=== PATIENT | female | born 1965 | race Caucasian/White ===

== ENCOUNTER 2018-01-16 20:40 | Observation (INO) | payer OTHER ==
[~2018-01-16] VITALS: Ht 182.9 cm; Wt 150.6 kg
[~2018-01-16 20:40] MED LIST: ACET120S; CEPH500 PO; CYCL10 PO; Cleocin HCl300 MG PO; ERYSTE250 PO; HYDACE5 PO; IBUP600 PO; LISI20 PO; LISI5 PO; LOVA20 PO; METF500 PO; METO10 PO; NAPR500 PO; OMEP20ER PO; OXYACE5T PO; OXYC1TAB11 PO; OXYC5 PO; PROM25 PO; Percocet 5-3251 EACH PO; RXHYDACE PO; SULTRIDS PO; Senexon8.6 MG; Senna-Docusate1 EACH PO; Senna8.6 MG PO; TRAM50 PO; ZESTORETIC 20-121 EA; Zofran Odt4 MG SL
[2018-01-16 21:20] LABS: Calcium, Ionized (POC) 1.08 mmol/L (1.10-1.46); Chloride (POC) 104 mmol/L (98-108); Creatinine (POC) 0.9 mg/dL (0.6-1.0); Glucose (ISTAT POC) 111 mg/dL (70-99); Hemoglobin (POC) 13.6 g/dL (12.0-16.0); Potassium (POC) 3.7 mmol/L (3.5-5.5); Sodium (POC) 140 mmol/L (135-148); Total CO2 (POC) 22 mmol/L (21-32)
[2018-01-16 21:21] LABS: BASOPHILS ABSOLUTE AUTO 0.07 K/mm3 (0.00-0.23); BASOPHILS PERCENT AUTO 1 % (0-2); EOSINOPHILS ABSOLUTE AUTO 0.27 K/mm3 (0.00-0.68); EOSINOPHILS PERCENT AUTO 3 % (0-6); Hematocrit 43.2 % (33.0-51.0); Hemoglobin 14.2 g/dL (11.5-16.0); IMMATURE GRAN ABSOLUTE AUTO 0.02 K/mm3 (0.00-0.10); IMMATURE GRAN PERCENT AUTO 0 % (0-1); LYMPHOCYTES ABSOLUTE AUTO 4.05 K/mm3 (0.84-5.20); LYMPHOCYTES PERCENT AUTO 44 % (21-46); MONOCYTES ABSOLUTE AUTO 0.66 K/mm3 (0.16-1.47); MONOCYTES PERCENT AUTO 7 % (4-13); Mean Corpuscular HGB Conc 32.9 g/dL (31.5-36.5); Mean Corpuscular Volume 91 fL (80-100); NEUTROPHILS ABSOLUTE AUTO 4.09 K/mm3 (1.96-9.15); NEUTROPHILS PERCENT AUTO 45 % (41-73); RDW Coefficient Variation 13.5 % (11.7-14.2); RDW Standard Deviation 46.2 fL (35.1-46.3); Red Blood Cell Count 4.74 M/mm3 (3.80-5.20); White Blood Cell Count 9.16 K/mm3 (4.00-11.30)
[2018-01-16 21:22] LABS: Mean Platelet Volume 10.4 fL (9.1-12.4); Platelet Count 150 K/mm3 (150-400)
[2018-01-16 21:34] LABS: International Normalized Ratio 0.96; Prothrombin Time Results 9.9 Sec (9.7-11.5)
[2018-01-16 21:38] LABS: Troponin I <0.015 ng/mL (0.000-0.040)
[2018-01-16 21:50] LABS: Alanine Aminotransfer (ALT/SGP 21 U/L (12-78); Albumin, Blood 3.6 g/dL (3.4-5.0); Albumin/Globulin Ratio 0.8 (0.8-1.8); Alk Phos 54 U/L (50-136); Anion Gap 9 mmol/L (6-16); Aspartate Aminotrans (AST/SGOT 14 U/L (12-37); Bilirubin, Total 0.2 mg/dL (0.1-1.0); Blood Urea Nitrogen 24 mg/dL (8-24); Bun/Creatinine Ratio 27.8 (12.0-20.0); CO2, Blood 25 mmol/L (21-32); Calcium, Blood 9.1 mg/dL (8.5-10.1); Chloride, Blood 105 mmol/L (98-108); Creatinine, Blood 0.86 mg/dL (0.40-1.00); Globulin, Blood 4.3 g/dL (2.2-4.0); Glomerular Filtration Rate >60 (60-); Glucose, Blood 105 mg/dL (70-99); Potassium, Blood 3.9 mmol/L (3.5-5.5); Sodium, Blood 139 mmol/L (136-145); Total Protein, Blood 7.9 g/dL (6.4-8.2)
[2018-01-17 03:31] LABS: BASOPHILS ABSOLUTE AUTO 0.05 K/mm3 (0.00-0.23); BASOPHILS PERCENT AUTO 1 % (0-2); EOSINOPHILS ABSOLUTE AUTO 0.26 K/mm3 (0.00-0.68); EOSINOPHILS PERCENT AUTO 4 % (0-6); Hematocrit 37.9 % (33.0-51.0); Hemoglobin 12.1 g/dL (11.5-16.0); IMMATURE GRAN ABSOLUTE AUTO 0.02 K/mm3 (0.00-0.10); IMMATURE GRAN PERCENT AUTO 0 % (0-1); LYMPHOCYTES ABSOLUTE AUTO 3.35 K/mm3 (0.84-5.20); LYMPHOCYTES PERCENT AUTO 46 % (21-46); MONOCYTES ABSOLUTE AUTO 0.52 K/mm3 (0.16-1.47); MONOCYTES PERCENT AUTO 7 % (4-13); Mean Corpuscular HGB 29.9 pg (26.0-34.0); Mean Corpuscular HGB Conc 31.9 g/dL (31.5-36.5); Mean Platelet Volume 10.2 fL (9.1-12.4); NEUTROPHILS ABSOLUTE AUTO 3.16 K/mm3 (1.96-9.15); NEUTROPHILS PERCENT AUTO 43 % (41-73); Platelet Count 159 K/mm3 (150-400); RDW Coefficient Variation 13.7 % (11.7-14.2); RDW Standard Deviation 47.1 fL (35.1-46.3); Red Blood Cell Count 4.05 M/mm3 (3.80-5.20); White Blood Cell Count 7.36 K/mm3 (4.00-11.30)
[2018-01-17 03:34] LABS: Mean Corpuscular Volume 94 fL (80-100)
[2018-01-17 03:46] LABS: Anion Gap 7 mmol/L (6-16); Blood Urea Nitrogen 23 mg/dL (8-24); Bun/Creatinine Ratio 25.4 (12.0-20.0); CO2, Blood 25 mmol/L (21-32); Chloride, Blood 109 mmol/L (98-108); Glomerular Filtration Rate >60 (60-); Glucose, Blood 123 mg/dL (70-99); Potassium, Blood 3.9 mmol/L (3.5-5.5); Sodium, Blood 141 mmol/L (136-145)
[2018-01-20 05:08] LABS: Anion Gap 5 mmol/L (6-16); Blood Urea Nitrogen 15 mg/dL (8-24); Bun/Creatinine Ratio 16.9 (12.0-20.0); CO2, Blood 29 mmol/L (21-32); Calcium, Blood 8.3 mg/dL (8.5-10.1); Chloride, Blood 106 mmol/L (98-108); Creatinine, Blood 0.89 mg/dL (0.40-1.00); Glomerular Filtration Rate >60 (60-); Glucose, Blood 97 mg/dL (70-99); Potassium, Blood 4.4 mmol/L (3.5-5.5); Sodium, Blood 140 mmol/L (136-145)
[2018-01-20] MEDS ORDERED: Aspir-Trin325 MG PO (09:28)
[2018-01-20] MEDS ORDERED: METO25 PO (09:29)
[2018-01-20] MEDS ORDERED: LISI20 PO (09:30)
== END 2018-01-20 09:53 | disposition home or self-care (01) ==
LOC: ER 20:40 → MEDS 23:33 → PCU 01-19 17:18
PROVIDERS: Emergency Medicine; Hospitalist; Nurse Practitioner Acute Care
DX: R07.89 Other chest pain (principal); I11.9 Hypertensive heart disease without heart failure; I43 Cardiomyopathy in diseases classified elsewhere; E11.9 Type 2 diabetes mellitus without complications; E66.01 Morbid (severe) obesity due to excess calories; F17.210 Nicotine dependence, cigarettes, uncomplicated; R10.9 Unspecified abdominal pain; G89.29 Other chronic pain; Z88.6 Allergy status to analgesic agent; Z68.42 Body mass index [BMI] 45.0-49.9, adult; Z79.01 Long term (current) use of anticoagulants; Z86.718 Personal history of other venous thrombosis and embolism; Z88.5 Allergy status to narcotic agent; Z88.8 Allergy status to other drugs, medicaments and biological substances; Z79.899 Other long term (current) drug therapy; Z86.2 Personal history of diseases of the blood and blood-forming organs and certain disorders involving the immune mechanism
CPT/HCPCS: 36415; 71260; 78452; 80047; 80048; 80053; 82947; 83880; 84484; 85014; 85025; 85610; 90686; 93005; 93010; 93017; 93306; 93454; 93458; 96360; 96361; 96372; 96374; 96375; 99152; 99285-25; A9500; C1769; C1894; G0378; J0706; J1170; J1644; J1650; J1885; J2250; J2405; J2785; J3010; J3490; J7030; Q9967

== ENCOUNTER 2018-02-23 12:32 | Observation (INO) | payer OTHER ==
[~2018-02-23] VITALS: Ht 182.9 cm; Wt 151.6 kg
[~2018-02-23 12:32] MED LIST changes: +Aspir-Trin325 MG PO; -METF500 PO; +METF500C PO; +METO25 PO; +Prinivil10 MG PO
[2018-02-23 13:26] LABS: BASOPHILS ABSOLUTE AUTO 0.05 K/mm3 (0.00-0.23); BASOPHILS PERCENT AUTO 1 % (0-2); EOSINOPHILS ABSOLUTE AUTO 0.22 K/mm3 (0.00-0.68); EOSINOPHILS PERCENT AUTO 3 % (0-6); Hemoglobin 13.3 g/dL (11.5-16.0); IMMATURE GRAN ABSOLUTE AUTO 0.02 K/mm3 (0.00-0.10); IMMATURE GRAN PERCENT AUTO 0 % (0-1); LYMPHOCYTES PERCENT AUTO 44 % (21-46); MONOCYTES ABSOLUTE AUTO 0.56 K/mm3 (0.16-1.47); MONOCYTES PERCENT AUTO 8 % (4-13); Mean Corpuscular HGB 29.9 pg (26.0-34.0); Mean Corpuscular HGB Conc 33.3 g/dL (31.5-36.5); Mean Corpuscular Volume 90 fL (80-100); Mean Platelet Volume 10.3 fL (9.1-12.4); NEUTROPHILS PERCENT AUTO 44 % (41-73); Platelet Count 169 K/mm3 (150-400); RDW Coefficient Variation 13.3 % (11.7-14.2); RDW Standard Deviation 44.2 fL (35.1-46.3); Red Blood Cell Count 4.45 M/mm3 (3.80-5.20); White Blood Cell Count 6.85 K/mm3 (4.00-11.30)
[2018-02-23 13:44] LABS: International Normalized Ratio 1.48; Prothrombin Time Results 14.9 Sec (9.7-11.5)
[2018-02-23 13:49] LABS: Alanine Aminotransfer (ALT/SGP 21 U/L (12-78); Albumin, Blood 3.7 g/dL (3.4-5.0); Albumin/Globulin Ratio 0.9 (0.8-1.8); Alk Phos 50 U/L (50-136); Anion Gap 10 mmol/L (6-16); Aspartate Aminotrans (AST/SGOT 16 U/L (12-37); Bilirubin, Total 0.2 mg/dL (0.1-1.0); Blood Urea Nitrogen 15 mg/dL (8-24); Bun/Creatinine Ratio 19.8 (12.0-20.0); CO2, Blood 23 mmol/L (21-32); Calcium, Blood 9.1 mg/dL (8.5-10.1); Chloride, Blood 106 mmol/L (98-108); Creatinine, Blood 0.76 mg/dL (0.40-1.00); Glomerular Filtration Rate >60 (60-); Glucose, Blood 94 mg/dL (70-99); Potassium, Blood 3.9 mmol/L (3.5-5.5); Sodium, Blood 139 mmol/L (136-145); Total Protein, Blood 7.7 g/dL (6.4-8.2); Troponin I <0.015 ng/mL (0.000-0.040)
[2018-02-23] MEDS ORDERED: Nicoderm Cq1 EAC1 TD (16:16)
[2018-02-23] MEDS ORDERED: WARF10 PO (16:17)
[2018-02-23] MEDS ORDERED: WARF2.5 PO (16:17)
[2018-02-24 05:03] LABS: BASOPHILS ABSOLUTE AUTO 0.04 K/mm3 (0.00-0.23); BASOPHILS PERCENT AUTO 1 % (0-2); EOSINOPHILS ABSOLUTE AUTO 0.19 K/mm3 (0.00-0.68); EOSINOPHILS PERCENT AUTO 4 % (0-6); Hematocrit 37.5 % (33.0-51.0); Hemoglobin 12.1 g/dL (11.5-16.0); IMMATURE GRAN PERCENT AUTO 0 % (0-1); LYMPHOCYTES PERCENT AUTO 44 % (21-46); MONOCYTES ABSOLUTE AUTO 0.44 K/mm3 (0.16-1.47); MONOCYTES PERCENT AUTO 8 % (4-13); Mean Corpuscular HGB 29.7 pg (26.0-34.0); Mean Corpuscular HGB Conc 32.3 g/dL (31.5-36.5); Mean Corpuscular Volume 92 fL (80-100); Mean Platelet Volume 9.9 fL (9.1-12.4); NEUTROPHILS ABSOLUTE AUTO 2.33 K/mm3 (1.96-9.15); NEUTROPHILS PERCENT AUTO 43 % (41-73); Platelet Count 149 K/mm3 (150-400); RDW Coefficient Variation 13.6 % (11.7-14.2); RDW Standard Deviation 46.7 fL (35.1-46.3); Red Blood Cell Count 4.08 M/mm3 (3.80-5.20)
[2018-02-24 05:15] LABS: International Normalized Ratio 1.69; Prothrombin Time Results 16.9 Sec (9.7-11.5)
[2018-02-24 05:24] LABS: Anion Gap 9 mmol/L (6-16); Blood Urea Nitrogen 14 mg/dL (8-24); Bun/Creatinine Ratio 17.7 (12.0-20.0); CO2, Blood 26 mmol/L (21-32); Calcium, Blood 8.1 mg/dL (8.5-10.1); Chloride, Blood 106 mmol/L (98-108); Creatinine, Blood 0.79 mg/dL (0.40-1.00); Glomerular Filtration Rate >60 (60-); Glucose, Blood 89 mg/dL (70-99); Sodium, Blood 141 mmol/L (136-145)
[2018-02-24] MEDS ORDERED: ACET325 PO (14:35)
== END 2018-02-24 16:00 | disposition home or self-care (01) ==
LOC: ER 12:32 → MEDS 17:10
PROVIDERS: Emergency Medicine; Internal Medicine
DX: R07.89 Other chest pain (principal); D68.51 Activated protein C resistance; D68.2 Hereditary deficiency of other clotting factors; I10 Essential (primary) hypertension; E11.65 Type 2 diabetes mellitus with hyperglycemia; R63.4 Abnormal weight loss; Z88.5 Allergy status to narcotic agent; Z88.8 Allergy status to other drugs, medicaments and biological substances; Z79.82 Long term (current) use of aspirin; Z79.899 Other long term (current) drug therapy; Z87.891 Personal history of nicotine dependence; Z79.01 Long term (current) use of anticoagulants
CPT/HCPCS: 36415; 71046; 71260; 80048; 80053; 84443; 84484; 85025; 85610; 85651; 93005; 93010; 94640; 94760; 96361; 96372; 96374; 96375; 96376; 99285-25; G0378; J0360; J1170; J1650; J1885; J2060; J2270; J2930; J7030; Q9967

== ENCOUNTER 2018-08-02 18:20 | Emergency (ER) | payer OTHER ==
[~2018-08-02] VITALS: Ht 182.9 cm; Wt 147.4 kg
[~2018-08-02 18:20] MED LIST changes: +ACET325 PO; +Nicoderm Cq1 EAC1 TD; +WARF10 PO; +WARF2.5 PO
[2018-08-02 19:16] LABS: Source, Urine Clean Catch
[2018-08-02 19:19] LABS: Bilirubin, Urine Neg (Neg); Blood, Urine 5+ (Neg); Glucose Qualitative, Urine Neg (Neg); Ketones, Urine 1+ (Neg); Leukocyte Esterase, Urine 2+ (Neg); Nitrite, Urine Pos (Neg); Protein, Urine 3+ (Neg); Urobilinogen, Urine 1+ (Normal)
[2018-08-02 19:42] LABS: Appearance, Urine Bloody (Clear); Color, Urine Red (P-Yellow)
[2018-08-02 19:45] LABS: Red Blood Cells, Urine TNTC /hpf (0-2)
[2018-08-02 19:46] LABS: Bacteria Rare /hpf; Squamous Epithelial Cells Few /hpf (Few)
[2018-08-02 19:56] LABS: BASOPHILS ABSOLUTE AUTO 0.07 K/mm3 (0.00-0.23); BASOPHILS PERCENT AUTO 1 % (0-2); EOSINOPHILS ABSOLUTE AUTO 0.26 K/mm3 (0.00-0.68); EOSINOPHILS PERCENT AUTO 3 % (0-6); Hematocrit 40.3 % (33.0-51.0); IMMATURE GRAN ABSOLUTE AUTO 0.01 K/mm3 (0.00-0.10); IMMATURE GRAN PERCENT AUTO 0 % (0-1); LYMPHOCYTES ABSOLUTE AUTO 3.03 K/mm3 (0.84-5.20); LYMPHOCYTES PERCENT AUTO 39 % (21-46); MONOCYTES ABSOLUTE AUTO 0.58 K/mm3 (0.16-1.47); MONOCYTES PERCENT AUTO 8 % (4-13); Mean Corpuscular HGB 29.7 pg (26.0-34.0); Mean Corpuscular HGB Conc 32.3 g/dL (31.5-36.5); Mean Corpuscular Volume 92 fL (80-100); Mean Platelet Volume 10.1 fL (9.1-12.4); NEUTROPHILS ABSOLUTE AUTO 3.74 K/mm3 (1.96-9.15); NEUTROPHILS PERCENT AUTO 49 % (41-73); Platelet Count 170 K/mm3 (150-400); RDW Coefficient Variation 13.9 % (11.7-14.2); RDW Standard Deviation 47.2 fL (35.1-46.3); Red Blood Cell Count 4.38 M/mm3 (3.80-5.20); White Blood Cell Count 7.69 K/mm3 (4.00-11.30)
[2018-08-02 20:19] LABS: Alanine Aminotransfer (ALT/SGP 16 U/L (12-78); Albumin, Blood 3.3 g/dL (3.4-5.0); Albumin/Globulin Ratio 0.7 (0.8-1.8); Alk Phos 67 U/L (50-136); Anion Gap 5 mmol/L (6-16); Aspartate Aminotrans (AST/SGOT 12 U/L (12-37); Bilirubin, Total 0.2 mg/dL (0.1-1.0); Blood Urea Nitrogen 16 mg/dL (8-24); Bun/Creatinine Ratio 17.5 (12.0-20.0); CO2, Blood 29 mmol/L (21-32); Calcium, Blood 8.6 mg/dL (8.5-10.1); Chloride, Blood 104 mmol/L (98-108); Creatinine, Blood 0.91 mg/dL (0.40-1.00); Globulin, Blood 4.6 g/dL (2.2-4.0); Glomerular Filtration Rate >60 (60-); Glucose, Blood 91 mg/dL (70-99); Potassium, Blood 4.1 mmol/L (3.5-5.5); Prothrombin Time Results 41.3 Sec (9.7-11.5); Sodium, Blood 138 mmol/L (136-145); Total Protein, Blood 7.9 g/dL (6.4-8.2)
[2018-08-02 20:23] LABS: International Normalized Ratio 4.46
[2018-08-03] MEDS ORDERED: CEPH500 PO (00:01)
== END 2018-08-03 01:00 | disposition home or self-care (01) ==
LOC: ER 18:20
PROVIDERS: Emergency Medicine; Physician Assistant
DX: N12 Tubulo-interstitial nephritis, not specified as acute or chronic (principal); E11.9 Type 2 diabetes mellitus without complications; I10 Essential (primary) hypertension; D68.51 Activated protein C resistance; F17.200 Nicotine dependence, unspecified, uncomplicated; Z88.8 Allergy status to other drugs, medicaments and biological substances; Z88.5 Allergy status to narcotic agent; Z79.82 Long term (current) use of aspirin; Z79.84 Long term (current) use of oral hypoglycemic drugs; Z79.899 Other long term (current) drug therapy; Z79.01 Long term (current) use of anticoagulants
CPT/HCPCS: 36415; 74176; 80053; 81001; 85025; 85610; 87086; 96365; 96375; 99284-25; A9270-GY; J0696; J1170; J2405; J3010

== ENCOUNTER → 2019-07-01 | Outpatient (CLI) | payer OTHER, SELFPAY ==
[2019-07-01 12:08] LABS: International Normalized Ratio 3.04; Prothrombin Time Results 30.5 Sec (9.7-11.5)
== END | disposition home or self-care (01) ==
LOC: LAB EV 11:30 → LAB SHORT 11:30
PROVIDERS: Physician Assistant
DX: D68.51 Activated protein C resistance (principal)
CPT/HCPCS: 85379; 85610

== ENCOUNTER → 2019-07-18 | Outpatient (CLI) | payer OTHER, SELFPAY ==
[2019-07-18 16:44] LABS: BASOPHILS ABSOLUTE AUTO 0.05 K/mm3 (0.00-0.23); BASOPHILS PERCENT AUTO 1 % (0-2); EOSINOPHILS ABSOLUTE AUTO 0.21 K/mm3 (0.00-0.68); EOSINOPHILS PERCENT AUTO 3 % (0-6); Hematocrit 37.8 % (33.0-51.0); Hemoglobin 12.8 g/dL (11.5-16.0); IMMATURE GRAN ABSOLUTE AUTO 0.02 K/mm3 (0.00-0.10); IMMATURE GRAN PERCENT AUTO 0 % (0-1); LYMPHOCYTES ABSOLUTE AUTO 2.46 K/mm3 (0.84-5.20); LYMPHOCYTES PERCENT AUTO 35 % (21-46); MONOCYTES ABSOLUTE AUTO 0.46 K/mm3 (0.16-1.47); MONOCYTES PERCENT AUTO 7 % (4-13); Mean Corpuscular HGB 30.5 pg (26.0-34.0); Mean Corpuscular HGB Conc 33.9 g/dL (31.5-36.5); Mean Corpuscular Volume 90 fL (80-100); Mean Platelet Volume 10.3 fL (9.1-12.4); NEUTROPHILS ABSOLUTE AUTO 3.76 K/mm3 (1.96-9.15); NEUTROPHILS PERCENT AUTO 54 % (41-73); Platelet Count 179 K/mm3 (150-400); RDW Coefficient Variation 14.3 % (11.7-14.2); RDW Standard Deviation 46.5 fL (35.1-46.3); Red Blood Cell Count 4.19 M/mm3 (3.80-5.20); White Blood Cell Count 6.96 K/mm3 (4.00-11.30)
[2019-07-18 16:56] LABS: Alanine Aminotransfer (ALT/SGP 19 U/L (12-78); Albumin, Blood 3.3 g/dL (3.4-5.0); Albumin/Globulin Ratio 0.8 (0.8-1.8); Alk Phos 54 U/L (40-126); Anion Gap 9 mmol/L (6-16); Aspartate Aminotrans (AST/SGOT 12 U/L (12-37); Bilirubin, Total 0.2 mg/dL (0.1-1.0); Blood Urea Nitrogen 16 mg/dL (8-24); Bun/Creatinine Ratio 18.2 (12.0-20.0); CO2, Blood 28 mmol/L (21-32); Calcium, Blood 8.6 mg/dL (8.5-10.1); Chloride, Blood 104 mmol/L (98-108); Creatinine, Blood 0.88 mg/dL (0.40-1.00); Globulin, Blood 4.3 g/dL (2.2-4.0); Glomerular Filtration Rate >60 (60-); Glucose, Blood 129 mg/dL (70-99); Potassium, Blood 4.1 mmol/L (3.5-5.5); Sodium, Blood 141 mmol/L (136-145); Total Protein, Blood 7.6 g/dL (6.4-8.2)
[2019-07-18 16:58] LABS: Troponin I <0.017 ng/mL (0.000-0.040)
== END | disposition home or self-care (01) ==
LOC: LAB EV 16:37 → LAB SHORT 16:37
PROVIDERS: Family Medicine
DX: R07.9 Chest pain, unspecified (principal)
CPT/HCPCS: 80053; 84484; 85025; 85379

== ENCOUNTER 2019-07-20 21:16 | Inpatient (IN) | payer OTHER, SELFPAY ==
[~2019-07-20] VITALS: Ht 180.3 cm; Wt 145.7 kg
[2019-07-20 22:37] LABS: BASOPHILS ABSOLUTE AUTO 0.07 K/mm3 (0.00-0.23); BASOPHILS PERCENT AUTO 1 % (0-2); EOSINOPHILS ABSOLUTE AUTO 0.25 K/mm3 (0.00-0.68); EOSINOPHILS PERCENT AUTO 3 % (0-6); Hematocrit 40.5 % (33.0-51.0); IMMATURE GRAN ABSOLUTE AUTO 0.01 K/mm3 (0.00-0.10); IMMATURE GRAN PERCENT AUTO 0 % (0-1); LYMPHOCYTES ABSOLUTE AUTO 3.08 K/mm3 (0.84-5.20); LYMPHOCYTES PERCENT AUTO 37 % (21-46); MONOCYTES ABSOLUTE AUTO 0.62 K/mm3 (0.16-1.47); MONOCYTES PERCENT AUTO 7 % (4-13); Mean Corpuscular HGB 29.9 pg (26.0-34.0); Mean Corpuscular HGB Conc 32.1 g/dL (31.5-36.5); Mean Platelet Volume 10.2 fL (9.1-12.4); NEUTROPHILS ABSOLUTE AUTO 4.33 K/mm3 (1.96-9.15); NEUTROPHILS PERCENT AUTO 52 % (41-73); Platelet Count 166 K/mm3 (150-400); RDW Coefficient Variation 14.1 % (11.7-14.2); RDW Standard Deviation 48.7 fL (35.1-46.3); Red Blood Cell Count 4.35 M/mm3 (3.80-5.20); White Blood Cell Count 8.36 K/mm3 (4.00-11.30)
[2019-07-20 22:38] LABS: Mean Corpuscular Volume 93 fL (80-100)
[2019-07-20 22:41] LABS: International Normalized Ratio 2.71; Prothrombin Time Results 27.4 Sec (9.7-11.5)
[2019-07-20 23:19] LABS: Alanine Aminotransfer (ALT/SGP 28 U/L (12-78); Albumin, Blood 3.4 g/dL (3.4-5.0); Albumin/Globulin Ratio 0.8 (0.8-1.8); Alk Phos 50 U/L (50-136); Anion Gap 7 mmol/L (6-16); Aspartate Aminotrans (AST/SGOT 31 U/L (12-37); Bilirubin, Total 0.2 mg/dL (0.1-1.0); Blood Urea Nitrogen 23 mg/dL (8-24); Bun/Creatinine Ratio 30.9 (12.0-20.0); CO2, Blood 23 mmol/L (21-32); Chloride, Blood 108 mmol/L (98-108); Creatinine, Blood 0.75 mg/dL (0.40-1.00); Globulin, Blood 4.3 g/dL (2.2-4.0); Glomerular Filtration Rate >60 (60-); Glucose, Blood 92 mg/dL (70-99); Potassium, Blood 4.8 mmol/L (3.5-5.5); Sodium, Blood 138 mmol/L (136-145); Total Protein, Blood 7.7 g/dL (6.4-8.2)
[2019-07-20 23:51] LABS: Source, Urine Clean Catch
[2019-07-20 23:53] LABS: Bilirubin, Urine Neg (Neg); Blood, Urine 2+ (Neg); Glucose Qualitative, Urine Neg (Neg); Ketones, Urine Neg (Neg); Leukocyte Esterase, Urine 1+ (Neg); Nitrite, Urine Neg (Neg); Protein, Urine Neg (Neg); Specific Gravity, Urine 1.025 (1.003-1.022); Urobilinogen, Urine NORM (Normal)
[2019-07-21 00:04] LABS: Color, Urine Yellow (P-Yellow)
[2019-07-21 00:05] LABS: Appearance, Urine Clear (Clear); Bacteria Few /hpf; Mucus Light (0-Heavy); Squamous Epithelial Cells Few /hpf (Few); White Blood Cells, Urine 0-2 /hpf (0-5)
[2019-07-21] MEDS ORDERED: SENEXON-S 50-81 EACH PO (00:08)
[2019-07-21] MEDS ORDERED: WARF10 PO ×2 (00:09)
[2019-07-21] MEDS ORDERED: Prozac20 MG PO (00:10)
--- NOTE | 2019-07-21 01:44 | NUR ---
ADMISSION: PATIENT IS RECIEVED VIA STRETCHER. PATIENT ABLE TO AMB. FROM [place] TO BED WITH STEADY GAIT. VS ARE STABLE, REPORTING PAIN UNDER RIGHT BREAST 11/01. PATIENT IS ORIENTED TO ROOM AND CALL ROCHA. FALL PREVENTION IS REVIEWED WITH PATIENT.
--- NOTE | 2019-07-21 04:20 | NUR ---
PAIN: PATIENT IS REPORTING PAIN UNDER RIGHT BREAST 12/02, TO EARLY TO GIVE FENTANYL. DR SWAN IS CALLED AND ORDER TO CHANGE FENTANYL TO 25-50 MCG Q 4 HOURS.
[2019-07-21 05:12] LABS: International Normalized Ratio 2.8; Prothrombin Time Results 28.3 Sec (9.7-11.5)
--- NOTE | 2019-07-21 06:31 | NUR ---
SHIFT SUMMARY: PATIENT REPORTS PAIN UNDER RIGHT BREAST IS 8/10, TO EARLY TO GIVE FENTANYL. DR SWAN WAS NOTIFIED AND ORDERS TO CHANGE FENTANYL TO 25-50 MCG Q 4 HOURS IV PRN. MEDICATION WAS GIVEN WITH FAIR EFFECT. "IT IS OK UNLESS I MOVE, THAT MAKES IT GO WAY UP". PATIENT IN RESTING IN BED AT THIS TIME. CONSULT WAS CALLED TO DR BURLESON ANSWERING SERVICE.
--- NOTE | 2019-07-21 08:00 | NUR ---
PT PLEASANT COOP IN 12/02 PAIN ABD RUQ. STATES FENTANYL ONLY WORKS [address] GAITAN FOR OPTIONS. DILAUDID ORDERED. PT SHOWS ALLERGY . HIVES. PT STATES RECEIVED IN ER WITH NO PROBLEMS. ORDERS GIVEN.
--- NOTE | 2019-07-21 09:00 | NUR ---
PT NOW MUCH MORE COMFORTABLE. NO CONCERNS WITH HIVES. PN DOWN TO ABOUT 2. STATES MUCH BETTER. A/O X3. H/R REG, NO MURMER NOTED. PT STATES CONSISTANTLY HAS LOW H/R. NO TELE. LUNGS CLEAR, RESP EASY, UNLABORED. ON R.A. BT HYPO. STATES BM YEST. ABD TENDER, GUARDED. SOME RED BLOOD REPORTED. NOTIFIED, [facility] OBTAINED PRIOR SHIFT. NO NEW ORDERS. VOIDS INDEPENDANT TO BATHROOM. BED IN LOW POSITION, CALL LITE IN REACH, CALLS APPROP SPOKE TO DR ARNIE TORO, PT TAKES AT NITE ONLY. HE TO ADJUST ORDER.
--- NOTE | 2019-07-21 15:09 | NUR ---
called dr birmingham with v/s pt states normal for low h/r. however pt is running temp. orders for tylenol pending
--- NOTE | 2019-07-21 17:56 | NUR ---
PT QUITE PLEASANT TODAY. GOT PAIN UNDER CONTROL THIS AM. ABLE TO FUNCTION BETTER. EXPECT GALL BLADDER SURG WHEN PT/INR WNL. DR AYALA STATES EXPECTS TUESDAY. WILL CONTINUE TO MONITOR. DR FRAIRE EXPECTS WILL START HEPARIN WHEN COAGULATION REQUIRED. NO OTHER CONCERNS AT THIS TIME. BED IN LOW POSITION, CALL LITE IN REACH, CALLS APPROP
--- NOTE | 2019-07-22 06:15 | NUR ---
SHIFT SUMMARY: A/OX4. COMMUNICATES NEEDS. MED X 2 FOR ABD PAIN, EACH TIME W/GOOD EFFECT. PT INDEPENDENT IN ROOM. DENIES PAIN. ABD TENDER IN THE RUQ AND EPIGASTRIC REGION. PT STATES PAIN WRAPS AROUND TO R BACK. BT HYPOACTIVE. DENIES N/V. WILL CONT TO MONITOR.
--- NOTE | 2019-07-22 08:30 | NUR ---
PT PLEASANT COOP A/O. JUST MEDICATED FOR PAIN RECENTLY. IS HAVING MORE PAIN THIS AM WAITED TOO LONG FOR LAST DOSE. WAS TRYING TO SLEEP. BETTER UNDER CONTROL NOW JUST RECEIVED. H/R REG, NO MURMER NOTED, NO TELE. RATE RECHECKED AT 54..WILL HOLD METOPROLOL UNTIL SEE DR GAITAN, LUNGS CLEAR, RESP EASY, UNLABORED. ON R.A. BT X4 LAST BM YEST. VOIDS PER BATHROOM. INDEPENDANT IN ROOM. BED IN LOW POSITION, CALL LITE IN REACH, CALLS APPROP
[2019-07-22 10:14] LABS: International Normalized Ratio 2.19; Prothrombin Time Results 22.4 Sec (9.7-11.5)
--- NOTE | 2019-07-22 17:35 | NUR ---
PTPLEASANT TODAY. PAIN A LITTLE HIGHER TODAY. NEEDED MORE PAIN MED. HOPING FOR SURG TOMORROW. WILL BE NPO MIDNITE PER CALL TO DR GAITAN. IF PT/INR DOWN ENOUGH WILL DECIDE IF CAN DO. SUCH, FRIEDA MAKE NPO FOR MIDNITE PREP. PT UNDERSTANDS. NO NEW CONCERNS AT THIS TIME. BED IN LOW POSITIOIN,C ALL LITE IN REACH, CALLS APPROP
--- NOTE | 2019-07-22 22:36 | NUR ---
CARDIAC: PATIENT IS BRADYCARDIC AT 53, LPRESSOR 12.5 MG IS HELD. DAYANA DUONG NP IS NOTIFIED.
--- NOTE | 2019-07-23 05:25 | NUR ---
SHIFT SUMMARY: PATIENT IS A&OX4, CONTINUES TO HAVE SHARP STABBING RUQ PAIN THAT GOES THRU TO BACK. IV DILAUDID PROVIDES GOOD PAIN CONTROL. NO COMPLIANTS OF NAUSEA. PATIENT HAS BEEN NPO SINCE MIDNIGHT FOR POSSIBLE OR PROCEEDURE TODAY, AWAITING RESULTS OF INR. DESTINY CONSENT IS SIGNED AND IN THE CHART.
[2019-07-23 05:37] LABS: International Normalized Ratio 1.77; Prothrombin Time Results 18.3 Sec (9.7-11.5)
--- NOTE | 2019-07-23 19:37 | NUR ---
SHIFT SUMMARY: NO ACUTE CHANGES TO REPORT THIS SHIFT. PT A&O; CALM AND COOPERATIVE WITH CARE; INDEPENDENT IN ROOM. AWAITING SURGERY FOR CHOLELITHIASIS; INR=1.77; SURGEON (DR RIOS) WAITING FOR INR<1.5. PT HX DVTs; HEPARIN DRIP @ 30ML/HR. REPORT GIVEN TO ONCOMING RN.
[2019-07-24 05:10] LABS: International Normalized Ratio 1.44; Prothrombin Time Results 15.1 Sec (9.7-11.5)
--- NOTE | 2019-07-24 06:45 | NUR ---
07/24/19 0610 NPO SINCE MIDNIGHT. HEPARIN DRIP STOPPED AT 0600 THIS AM. MEDICATED SEVERAL TIMES FOR ABD. PIN. DENIES NAUSEA. IV ANTIBIOTICS IN PROCESS. VOIDING CLEAR, YELLOW URINE.
--- NOTE | 2019-07-24 12:17 | NUR ---
Patient up to Ambulate independently. Gait steady. Surgical site prepped with 2% Chlorhexidine cloth wipe. History, Chart, Medications and Allergies reviewed before start of procedure.Lungs clear T/O to Auscultation. Patient confirms NPO status and agrees with scheduled surgery. BELONINGS PLACED UNDER BED WITH STICKERS.
--- NOTE | 2019-07-24 13:00 | NUR ---
PT WAS AOX4 THIS AM AND INDEPENDENT IN ROOM. PT HAD BEEN NPO THROUGH THE NIGHT. PT COOPERATUVE IF CARE AND DENIED ANY PAIN. PT WAS TAKEN DOWN TO HAVE LAP VINNY PLACED AND REPORT CALLED TO RECIEVING RN FOR RM 216.
--- NOTE | 2019-07-24 14:10 | NUR ---
PATIENT TO ROOM FROM PACU. VSS AND PATIENT DROWSY. PATIENT MOANS BUT IS NOT ABLE TO WELL DEFINE AREA OF PAIN OR DISCOMFORT. PATIENT ADVISES CHEST IS SORE. I RAISED HEAD OF BED AND PATIENT REPORTS RELIEF. S/P LAP VINNY WITH LAP SITES X4 WITH SCANT SANGUINOUS DRAINAGE TO STERI STRIPS. WILL CONTINUE TO MONITOR AND MEDICATE PER EMAR FOR PAIN/NAUSEA. CALL LIGHT WITHIN REACH.
--- NOTE | 2019-07-24 18:53 | NUR ---
SHIFT SUMMARY PT ARRIVED TO ME POST OP. HAS BEEN VERY DROWSY SINCE BUT WOKE UP FOR CLEAR LQ DINNER AT 1800. UP TO VOID.
[2019-07-25 04:11] LABS: BASOPHILS ABSOLUTE AUTO 0.02 K/mm3 (0.00-0.23); BASOPHILS PERCENT AUTO 0 % (0-2); EOSINOPHILS PERCENT AUTO 0 % (0-6); Hematocrit 37.9 % (33.0-51.0); Hemoglobin 12.6 g/dL (11.5-16.0); IMMATURE GRAN ABSOLUTE AUTO 0.03 K/mm3 (0.00-0.10); IMMATURE GRAN PERCENT AUTO 0 % (0-1); LYMPHOCYTES PERCENT AUTO 11 % (21-46); MONOCYTES PERCENT AUTO 5 % (4-13); Mean Corpuscular HGB 29.9 pg (26.0-34.0); Mean Corpuscular HGB Conc 33.2 g/dL (31.5-36.5); Mean Platelet Volume 10.3 fL (9.1-12.4); NEUTROPHILS ABSOLUTE AUTO 6.71 K/mm3 (1.96-9.15); NEUTROPHILS PERCENT AUTO 83 % (41-73); Platelet Count 156 K/mm3 (150-400); RDW Coefficient Variation 13.2 % (11.7-14.2); RDW Standard Deviation 43.4 fL (35.1-46.3); Red Blood Cell Count 4.22 M/mm3 (3.80-5.20); White Blood Cell Count 8.06 K/mm3 (4.00-11.30)
[2019-07-25 04:12] LABS: Mean Corpuscular Volume 90 fL (80-100)
[2019-07-25 04:27] LABS: Anion Gap 6 mmol/L (6-16); Blood Urea Nitrogen 13 mg/dL (8-24); Bun/Creatinine Ratio 16.2 (12.0-20.0); CO2, Blood 24 mmol/L (21-32); Calcium, Blood 8.7 mg/dL (8.5-10.1); Chloride, Blood 105 mmol/L (98-108); Glomerular Filtration Rate >60 (60-); Glucose, Blood 170 mg/dL (70-99); Potassium, Blood 4.4 mmol/L (3.5-5.5); Sodium, Blood 135 mmol/L (136-145)
--- NOTE | 2019-07-25 04:33 | NUR ---
SHIFT SUMMARY POD 1 LAP VINNY. PT AA0X4, VSS. HR BRADYCARDIC DURING SHIFT. PT ASYMPTOMATIC. PT UP AND AMBULATING TO RESTROOM WITH SBY ASSIST. NO WEAKNESS NOTED. HEPARIN INFUSING DURING SHIFT. PT VOIDING. LAP SITES DRY SANGUINOUS DRAINAGE, SCANT AMOUNT OF DISCHARGE DURING SHIFT. CURRENTLY DRY. TOLERATING CLEAR LIQUID DIET.
[2019-07-25 08:50] LABS: International Normalized Ratio 1.28; Prothrombin Time Results 13.5 Sec (9.7-11.5)
--- NOTE | 2019-07-25 19:34 | NUR ---
END OF SHIFT SUMMARY: PATIENT CONTINUES TO HAVE HIGH LEVELS OF PAIN. PATIENT REPORTS THAT IT IS DIFFERENT THAN THE PRE-SURGICAL PAIN. MEDICATED VIA PRNS (SEE EMAR). PATIENT HAS BEEN UTILIZING A K-PAD AND AMBULATING IN THE ROOM. PATIENT REPORTS THAT SHE HAS YET TO HAVE A BOWEL MOVEMENT. STARTED ON PRN STOOL SOFTENER. PATIENT HAD FIRST REGULAR MEAL THIS EVENING. PATIENT TOLERATED WELL WITHOUT INCREASE IN PAIN OR ABDOMINAL CRAMPING. DENIES NAUSEA POST EATING. LATE ENTRY: PATIENT UP IN THE ROOM. DENIES DIZZINESS OR SOB. DISCUSSED WITH DR. GAITAN PATIENT'S LOW HEART RATE AND HOLDING OF THIS MORNINGS METOPROLOL. NEW ORDERS TO DISCONTINUE METOPROLOL. DISCUSSED WITH PATIENT. SHE EXPRESSES UNDERSTANDING THAT SHE WILL NEED TO FOLLOW-UP WITH HER PCP ABOUT HER METOPROLOL.
[2019-07-26 00:57] LABS: International Normalized Ratio 1.31; Prothrombin Time Results 13.8 Sec (9.7-11.5)
--- NOTE | 2019-07-26 05:59 | NUR ---
SHIFT SUMMARY POD#1 LAP VINNY. AAOX4/ANXIOUS AT TIMES. ABD INCISION WITH STERI STRIPS SCANT DRY SS DRAINAGE, NO INCREASE THIS SHIFT. DISCOMFORT CONTROLLED WITH 2 PAIN PILLS Q4H + 1MG IV DILAUDID Q3H THIS SHIFT. NO NAUSEA/EMESIS. PT INDEPENDENT IN ROOM, UP TO RESTROOM + AMBULATING WELL. HEP GTT INFUSING, INCREASED PER PHARMACY'S ORDERS. PT RESTING WELL THIS AM WITH CALL LIGHT IN REACH.
--- NOTE | 2019-07-26 08:45 | NUR ---
NOTIFIED BY SHRADDHA IN PHARMACY TO CONT HEPARIN GTT AT CURRENT RATE OF 40 ML/HR.
--- NOTE | 2019-07-26 14:57 | NUR ---
PHARM ORDER TO CONT HEPARIN GTT AT SAME RATE.
--- NOTE | 2019-07-26 18:21 | NUR ---
SHIFT SUMMARY PATIENT STATES PAIN AT TOLERABLE LEVEL WITH PO PAIN MEDS. PASSING FLATUS. TOLERATING DIET. UP IN ROOM AD LOU. AMBULATED IN [place]. IV PATENT, SITE CLEAR, HEPARIN CONT TO INFUSE AT 40 ML/HOUR. NO ACUTE CHANGES.
[2019-07-27 04:10] LABS: International Normalized Ratio 1.48; Prothrombin Time Results 15.5 Sec (9.7-11.5)
--- NOTE | 2019-07-27 04:41 | NUR ---
SHIFT SUMMARY PT IS A/O X4. NO ACUTE CHANGES OVERNIGHT. PT TOLERATING PO INTAKE, VOIDING. PT IS IND. IN ROOM. HEPARIN DRIP HAS BEEN GOING CONTINUOUSLY PER ORDERS. PAIN MANAGED WITH PO PAIN MEDS PER ORDERS. ASSISTED WITH ADL'S PRN.
[2019-07-27 07:32] LABS: Mean Platelet Volume 11.1 fL (9.1-12.4); Platelet Count 142 K/mm3 (150-400)
--- NOTE | 2019-07-27 14:07 | NUR ---
ASSUMING CARE OF PT AT THIS TIME.
--- NOTE | 2019-07-27 14:16 | NUR ---
HEPARIN RATE CHANGE TO 38 ML PER HOUR
--- NOTE | 2019-07-27 17:49 | NUR ---
PT REPORTS GOOD CONTROL OF ABD PAIN, UP AND ABOUT INDEPENDENTLY IN ROOM. PT COUMADIN DOSE INCREASED TODAY AND PT HOPEFUL SHE WILL BE DISCHARGED HOME TOMORROW
[2019-07-28 02:57] LABS: BASOPHILS ABSOLUTE AUTO 0.04 K/mm3 (0.00-0.23); BASOPHILS PERCENT AUTO 1 % (0-2); EOSINOPHILS ABSOLUTE AUTO 0.32 K/mm3 (0.00-0.68); EOSINOPHILS PERCENT AUTO 5 % (0-6); Hematocrit 37.5 % (33.0-51.0); Hemoglobin 12.1 g/dL (11.5-16.0); IMMATURE GRAN ABSOLUTE AUTO 0.02 K/mm3 (0.00-0.10); IMMATURE GRAN PERCENT AUTO 0 % (0-1); LYMPHOCYTES ABSOLUTE AUTO 2.77 K/mm3 (0.84-5.20); LYMPHOCYTES PERCENT AUTO 44 % (21-46); MONOCYTES ABSOLUTE AUTO 0.58 K/mm3 (0.16-1.47); MONOCYTES PERCENT AUTO 9 % (4-13); Mean Corpuscular HGB 30.2 pg (26.0-34.0); Mean Corpuscular HGB Conc 32.3 g/dL (31.5-36.5); Mean Platelet Volume 10.5 fL (9.1-12.4); NEUTROPHILS PERCENT AUTO 41 % (41-73); Platelet Count 147 K/mm3 (150-400); RDW Standard Deviation 48.4 fL (35.1-46.3); Red Blood Cell Count 4.01 M/mm3 (3.80-5.20); White Blood Cell Count 6.33 K/mm3 (4.00-11.30)
[2019-07-28 02:58] LABS: Mean Corpuscular Volume 94 fL (80-100)
[2019-07-28 03:12] LABS: International Normalized Ratio 1.91; Prothrombin Time Results 19.7 Sec (9.7-11.5)
--- NOTE | 2019-07-28 04:13 | NUR ---
SHIFT SUMMARY POD 4 LAP VINNY PT AAOX4, VSS. PT IND IN ROOM, USING K PACK ON ABDOMEN, MEDICATED FOR PAIN PER EMAR. REPORTS PASSING GAS. VOIDING AND TOLERATING PO WELL. HEPARIN INFUSION GOING THROUGH SHIFT. PT VERY MOTIVATED TO LEAVE TODAY. AWAITING THERAPEUTIC INR BEFORE DISCHARGE.
[2019-07-28] MEDS ORDERED: ACET325 PO (09:49)
[2019-07-28] MEDS ORDERED: Senna Plus Tab1 EACH PO (09:54)
[2019-07-28] MEDS ORDERED: Culturelle1 CAP PO (09:55)
[2019-07-28] MEDS ORDERED: ONDA4ODT PO (09:56)
[2019-07-28] MEDS ORDERED: SIME80CH PO (09:57)
--- NOTE | 2019-07-28 10:34 | NUR ---
DISCHARGE INSTRUCTIONS PT PROVIDED WITH WRITTEN AND VERBAL DISCHARGE INSTRUCTIONS. PT REPORTED SHE UNDERSTOOD. VSS. WILL MONITOR UNTIL REPORT TO ONCOMING RN.
--- NOTE | 2019-07-28 10:52 | NUR ---
DISCHARGE PT DISCHARGED AT APPROXIMATELY 1045. PT ASKED IF SHE COULD BE ASSISTED DOWN BY THE ER IN A W/C TO WAIT FOR FAMILY TO COME PICK HER UP. PT WAS ASSISTED DOWN TO THE ER.
== END 2019-07-28 11:00 | disposition home or self-care (01) | DRG 418 ==
LOC: ER 21:16 → MEDS 21:17 → SURS 07-22 08:08 → MEDS 07-22 22:00 → SURS 07-24 11:26
PROVIDERS: Emergency Medicine; Family Medicine; Hospitalist; Pharmacist; Pharmacist Pharmacotherapy; Physician Assistant; Surgery; ADMIT Family Medicine
PROC: 0DNU4ZZ Release Omentum, Percutaneous Endoscopic Approach (ICD-10-PCS; 2019-07-24)
PROC: 0FT44ZZ Resection of Gallbladder, Percutaneous Endoscopic Approach (ICD-10-PCS; principal; 2019-07-24 12:00)
DX: K80.10 Calculus of gallbladder with chronic cholecystitis without obstruction (principal); Z68.41 Body mass index [BMI] 40.0-44.9, adult; D68.51 Activated protein C resistance; E66.01 Morbid (severe) obesity due to excess calories; I10 Essential (primary) hypertension; E11.9 Type 2 diabetes mellitus without complications; Z86.14 Personal history of Methicillin resistant Staphylococcus aureus infection; Z86.718 Personal history of other venous thrombosis and embolism; R50.9 Fever, unspecified; Z79.01 Long term (current) use of anticoagulants; Z87.891 Personal history of nicotine dependence
CPT/HCPCS: 36415; 74176; 76705; 80048; 80053; 81001; 82272; 83690; 85025; 85049; 85610; 85730; 86850; 86900; 86901; 87086; 87106; 88304; 93005; 93010; 96372; 96374; 96375; 99285-25; A9270; A9270-GY; C1729; J0696; J1100; J1170; J1644; J1885; J2250; J2405; J2704; J2710; J3010; J7050

== ENCOUNTER 2020-01-15 21:27 | Emergency (ER) | payer OTHER ==
[~2020-01-15] VITALS: Ht 182.9 cm; Wt 149.7 kg
[~2020-01-15 21:27] MED LIST changes: +Culturelle1 CAP PO; +ONDA4ODT PO; +Prozac20 MG PO; +SENEXON-S 50-81 EACH PO; +SIME80CH PO; +Senna Plus Tab1 EACH PO
[2020-01-15] MEDS ORDERED: ELAQUIS (21:40)
[2020-01-15] MEDS ORDERED: ELIQUIS2.5 M1 PO (21:44)
[2020-01-15] MEDS ORDERED: Robaxin-750750 MG PO (23:38)
[2020-01-15] MEDS ORDERED: Percocet 5-3251 EACH PO (23:38)
== END 2020-01-15 23:45 | disposition home or self-care (01) ==
LOC: ER 21:27
DX: M54.2 Cervicalgia (principal); M25.511 Pain in right shoulder; M62.838 Other muscle spasm; I10 Essential (primary) hypertension; E11.9 Type 2 diabetes mellitus without complications; F17.200 Nicotine dependence, unspecified, uncomplicated; Z86.718 Personal history of other venous thrombosis and embolism; Z79.01 Long term (current) use of anticoagulants; Z79.84 Long term (current) use of oral hypoglycemic drugs; Z79.82 Long term (current) use of aspirin; Z79.899 Other long term (current) drug therapy; Z88.8 Allergy status to other drugs, medicaments and biological substances; Z88.1 Allergy status to other antibiotic agents; Z88.6 Allergy status to analgesic agent
CPT/HCPCS: 93005; 93010; 99283-25; A9270

== ENCOUNTER 2021-05-17 10:22 | Emergency (ER) | payer BC ==
[~2021-05-17] VITALS: Ht 177.8 cm; Wt 142.9 kg
[~2021-05-17 10:22] MED LIST changes: +ELAQUIS; +ELIQUIS2.5 M1 PO; +Robaxin-750750 MG PO
== END 2021-05-17 12:29 | disposition left against medical advice (07) ==
LOC: ER 10:22
DX: M54.9 Dorsalgia, unspecified (principal); Z53.21 Procedure and treatment not carried out due to patient leaving prior to being seen by health care provider
CPT/HCPCS: 99282

== ENCOUNTER 2022-04-05 05:24 | Emergency (ER) | payer BC ==
[~2022-04-05] VITALS: Ht 182.9 cm; Wt 147.9 kg
[2022-04-05 07:43] LABS: BASOPHILS ABSOLUTE AUTO 0.04 K/mm3 (0.00-0.23); BASOPHILS PERCENT AUTO 1 % (0-2); EOSINOPHILS ABSOLUTE AUTO 0.19 K/mm3 (0.00-0.68); EOSINOPHILS PERCENT AUTO 3 % (0-6); IMMATURE GRAN ABSOLUTE AUTO 0.03 K/mm3 (0.00-0.10); IMMATURE GRAN PERCENT AUTO 1 % (0-1); LYMPHOCYTES ABSOLUTE AUTO 2.17 K/mm3 (0.84-5.20); LYMPHOCYTES PERCENT AUTO 33 % (21-46); MONOCYTES ABSOLUTE AUTO 0.56 K/mm3 (0.16-1.47); MONOCYTES PERCENT AUTO 9 % (4-13); Mean Corpuscular HGB Conc 33.3 g/dL (31.5-36.5); Mean Corpuscular Volume 90 fL (80-100); NEUTROPHILS ABSOLUTE AUTO 3.61 K/mm3 (1.96-9.15); NEUTROPHILS PERCENT AUTO 55 % (41-73); Platelet Count 178 K/mm3 (150-400); RDW Coefficient Variation 13.6 % (11.7-14.2); RDW Standard Deviation 45.4 fL (35.1-46.3); Red Blood Cell Count 4.66 M/mm3 (3.80-5.20)
[2022-04-05 08:03] LABS: Albumin, Blood 3.5 g/dL (3.4-5.0); Albumin/Globulin Ratio 0.9 (0.8-1.8); Bilirubin, Total 0.4 mg/dL (0.1-1.0); Bun/Creatinine Ratio 22.9 (12.0-20.0); Calcium, Blood 8.9 mg/dL (8.5-10.1); Creatinine, Blood 0.83 mg/dL (0.40-1.00); Globulin, Blood 3.9 g/dL (2.2-4.0); Total Protein, Blood 7.4 g/dL (6.4-8.2)
== END 2022-04-05 08:31 | disposition home or self-care (01) ==
LOC: ER 05:24
PROVIDERS: Emergency Medicine
DX: H81.391 Other peripheral vertigo, right ear (principal); I10 Essential (primary) hypertension; E11.9 Type 2 diabetes mellitus without complications; F17.210 Nicotine dependence, cigarettes, uncomplicated; Z88.5 Allergy status to narcotic agent; Z88.8 Allergy status to other drugs, medicaments and biological substances; Z79.01 Long term (current) use of anticoagulants; Z79.82 Long term (current) use of aspirin; Z79.84 Long term (current) use of oral hypoglycemic drugs; Z79.899 Other long term (current) drug therapy
CPT/HCPCS: 80053; 85025; A9270

== ENCOUNTER 2023-03-16 12:20 | Day surgery (SDC) | payer OTHER ==
[~2023-03-16] VITALS: Ht 180.3 cm; Wt 125.0 kg
[2023-03-16] MEDS ORDERED: Prinivil10 MG (12:51)
[2023-03-16] MEDS ORDERED: PRAV20 (12:52)
[2023-03-16 15:27] VITALS: BP 120/85
== END 2023-03-16 15:30 | disposition home or self-care (01) ==
LOC: ORSCSDS 12:20
PROVIDERS: Internal Medicine Gastroenterology
PROC: 0DBK8ZX Excision of Ascending Colon, Via Natural or Artificial Opening Endoscopic, Diagnostic (ICD-10-PCS; principal; 2023-03-16 14:00)
PROC: 0DB68ZX Excision of Stomach, Via Natural or Artificial Opening Endoscopic, Diagnostic (ICD-10-PCS; principal; 2023-03-16 14:00)
PROC: 0DBM8ZX Excision of Descending Colon, Via Natural or Artificial Opening Endoscopic, Diagnostic (ICD-10-PCS; principal; 2023-03-16 14:00)
DX: Z12.11 Encounter for screening for malignant neoplasm of colon (principal); Z86.010 Personal history of colon polyps; Z13.810 Encounter for screening for upper gastrointestinal disorder; D12.4 Benign neoplasm of descending colon; D12.2 Benign neoplasm of ascending colon; K57.30 Diverticulosis of large intestine without perforation or abscess without bleeding; K29.50 Unspecified chronic gastritis without bleeding; K74.60 Unspecified cirrhosis of liver; Z86.19 Personal history of other infectious and parasitic diseases; Z86.718 Personal history of other venous thrombosis and embolism; I10 Essential (primary) hypertension; K21.9 Gastro-esophageal reflux disease without esophagitis; E11.9 Type 2 diabetes mellitus without complications; E78.5 Hyperlipidemia, unspecified; E66.9 Obesity, unspecified; Z68.38 Body mass index [BMI] 38.0-38.9, adult; F17.210 Nicotine dependence, cigarettes, uncomplicated; Z86.16 Personal history of COVID-19; Z79.84 Long term (current) use of oral hypoglycemic drugs; Z79.899 Other long term (current) drug therapy
CPT/HCPCS: 82947; 88305; 88342; J0461; J1980; J2001; J2405; J2704; J7120; Q9968

== ENCOUNTER 2023-06-15 10:50 | Day surgery (SDC) | payer OTHER ==
[~2023-06-15] VITALS: Ht 177.8 cm; Wt 115.5 kg
[2023-06-15] VITALS (14 sets, daily range): BP systolic 105–126; BP diastolic 67–94
[~2023-06-15 10:50] MED LIST changes: +CeFAZolin Sodium 2,000 MG in NS 50 ML IV SCH; +Chlorhexidine Mouth Care 15 ML UDC MT SCH; +Lactated Ringer's 1,000 ML IV SCH; +OZEMPIC0.25 MG/02 SC; +PRAV20 PO
[2023-06-15] MEDS ORDERED: DOCU100 PO (11:53)
[2023-06-15] MEDS ORDERED: OXYC10ER PO (11:54)
[2023-06-15] MEDS ORDERED: Ropivacaine 0.5% HCl/Pf 67.75 MG,EPINEPHrine HCL 0.25 MG,Ketorolac Tromethamine 15 MG,C... INFIL SCH (12:00)
[2023-06-15] MEDS ORDERED: Acetaminophen 500 MG Tab PO SCH ×2 (12:10→16:00)
[2023-06-15] MEDS ORDERED: OxyCODONE HCL 10 MG TABCR PO SCH (12:10)
[2023-06-15] MEDS ORDERED: propofoL 40 ML IV ONE (12:35)
[2023-06-15] MEDS ORDERED: FentaNYL Citrate 50 MCG/ML 2 ML Injection ONE (12:35)
[2023-06-15] MEDS ORDERED: Midazolam HCl 1MG / ML 2ML Vial ONE ×2 (12:36→14:10)
--- NOTE | 2023-06-15 13:03 | NUR ---
PT INTO [facility]. Pt transported into [facility] via WC. Surgical site prepped with 2% Chlorhexidine cloth wipe. History, Chart, Medications and Allergies reviewed before start of procedure.Pre-Op teaching done. Pt verbalizes understanding. Patient confirms NPO status and agrees with scheduled surgery. Lungs clear T/O to Auscultation. Patient reports completing Chlorhexadine shower X2 prior to admission to hospital. Pt belongings taken to room 223 on surgical floor.
[2023-06-15] MEDS ORDERED: HYDROmorphone HCl 2 MG Tab PO PRN (13:30)
[2023-06-15] MEDS ORDERED: Metoclopramide HCl 5MG / ML 2ML Vial IV PRN ×2 (13:35→14:10)
[2023-06-15] MEDS ORDERED: Magnesium Hydroxide Conc 10 ML UDC PO PRN (13:35)
[2023-06-15] MEDS ORDERED: Lactated Ringer's 1,000 ML IV SCH (13:35)
[2023-06-15] MEDS ORDERED: Promethazine HCl 25 MG Tab PO PRN (13:35)
[2023-06-15] MEDS ORDERED: Ondansetron HCl 2 MG / ML 2ML Vial IV PRN (13:35)
[2023-06-15] MEDS ORDERED: HYDROmorphone HCl/Pf 1MG SYR IV PRN (13:40)
[2023-06-15] MEDS ORDERED: FLU VACC QS2023-24(6MOS UP)/PF 60 MCG/0.5 ML SYRINGE IM SCH (13:40)
[2023-06-15] MEDS ORDERED: DiphenhydrAMINE HCL 25 MG Cap PO PRN (13:40)
[2023-06-15] MEDS ORDERED: Bisacodyl 10 MG Supp PR PRN (13:40)
[2023-06-15] MEDS ORDERED: Dexamethasone Sod Phos 10 MG/ML 1ML VIAL ONE (13:56)
[2023-06-15] MEDS ORDERED: Ketorolac Tromethamine 30mg Vial ONE ×2 (13:56→16:33)
[2023-06-15] MEDS ORDERED: Ondansetron HCl 2 MG / ML 2ML Vial ONE (13:56)
[2023-06-15] MEDS ORDERED: Vancomycin HCL 1,000 MG in NS 100 ML IV SCH (14:00)
[2023-06-15] MEDS ORDERED: FentaNYL Citrate 50 MCG/ML 2 ML Injection IV PRN ×2 (14:05→14:10)
[2023-06-15] MEDS ORDERED: Labetalol HCL 5 MG/ML 4ML Injection (Single Dose) IV PRN (14:10)
[2023-06-15] MEDS ORDERED: Morphine Sulfate 4 MG/1 ML Injection IV PRN (14:10)
[2023-06-15] MEDS ORDERED: Droperidol 5 mg/2 ml Vial IV PRN (14:10)
[2023-06-15] MEDS ORDERED: ePHEDrine Sulfate 50 MG/ML 1ML Injection ONE (14:46)
[2023-06-15] MEDS ORDERED: propofoL 20 ML IV ONE (15:23)
[2023-06-15] MEDS ORDERED: Ketorolac Tromethamine 15mg Vial IV SCH (18:00)
--- NOTE | 2023-06-15 19:56 | NUR ---
SHIFT SUMMARY S/P L TKA, DRESSING/LACIE CDI, TEDS/SCDS ON. A&OX4, VSS/RA, ISIDRO PO, VOIDING, AMB SBA FWW/GB, UP TO CHAIR/POLAR MARQUITA ON/ ELEVATED, PAIN TREATED PER EMAR, FRIEND BEDSIDE. REPORT TO DEYSI HARRIS.
[2023-06-15] MEDS ORDERED: Docusate Sodium 100 MG Cap PO SCH (21:00)
[2023-06-15] MEDS ORDERED: CeFAZolin Sodium 2,000 MG in NS 50 ML IV SCH (22:00)
[2023-06-16 00:16] VITALS: BP 97/68
[2023-06-16 00:45] VITALS: BP 92/47
[2023-06-16 00:53] VITALS: BP 86/46
[2023-06-16 04:28] VITALS: BP 113/74
[2023-06-16 04:43] LABS: BASOPHILS ABSOLUTE AUTO 0.02 K/mm3 (0.00-0.23); BASOPHILS PERCENT AUTO 0 % (0-2); EOSINOPHILS ABSOLUTE AUTO 0.01 K/mm3 (0.00-0.68); EOSINOPHILS PERCENT AUTO 0 % (0-6); Hematocrit 35.1 % (33.0-51.0); Hemoglobin 11.5 g/dL (11.5-16.0); IMMATURE GRAN ABSOLUTE AUTO 0.06 K/mm3 (0.00-0.10); IMMATURE GRAN PERCENT AUTO 1 % (0-1); LYMPHOCYTES ABSOLUTE AUTO 1.43 K/mm3 (0.84-5.20); LYMPHOCYTES PERCENT AUTO 14 % (21-46); MONOCYTES ABSOLUTE AUTO 0.78 K/mm3 (0.16-1.47); MONOCYTES PERCENT AUTO 8 % (4-13); Mean Corpuscular HGB 30.4 pg (26.0-34.0); Mean Corpuscular HGB Conc 32.8 g/dL (31.5-36.5); Mean Corpuscular Volume 93 fL (80-100); Mean Platelet Volume 10.8 fL (9.1-12.4); NEUTROPHILS ABSOLUTE AUTO 7.85 K/mm3 (1.96-9.15); NEUTROPHILS PERCENT AUTO 77 % (41-73); Platelet Count 144 K/mm3 (150-400); RDW Coefficient Variation 13.7 % (11.7-14.2); RDW Standard Deviation 46.8 fL (35.1-46.3); Red Blood Cell Count 3.78 M/mm3 (3.80-5.20); White Blood Cell Count 10.15 K/mm3 (4.00-11.30)
[2023-06-16 05:03] LABS: Magnesium, Blood 2.2 mg/dL (1.6-2.4)
[2023-06-16 05:20] LABS: Anion Gap Unable to Calculate mmol/L (6-16); Blood Urea Nitrogen 15 mg/dL (8-24); Bun/Creatinine Ratio 17.4 (12.0-20.0); CO2, Blood 29 mmol/L (21-32); Calcium, Blood 8.7 mg/dL (8.5-10.1); Chloride, Blood 110 mmol/L (98-108); Creatinine, Blood 0.86 mg/dL (0.40-1.00); Glomerular Filtration Rate 78 (60-); Glucose, Blood 158 mg/dL (70-99); Potassium, Blood 4.7 mmol/L (3.5-5.5); Sodium, Blood 138 mmol/L (136-145)
--- NOTE | 2023-06-16 05:34 | NUR ---
SHIFT SUMMARY PT HAS RESTED T/O THE SHIFT. PT HAS BEEN UP AND AMBULATING, VOIDING AND TOLERATING PO INTAKE. PAIN MANAGED WITH MEDS PER EMAR. DRESSING C/D/I, POLAR PACK IN PLACE. POST OP VITALS ARE STABLE. PLAN IS FOR DC TODAY.
[2023-06-16] MEDS ORDERED: Vancomycin HCL 1,000 MG in NS 100 ML IV ONE (07:10)
[2023-06-16 07:39] VITALS: BP 125/67
[2023-06-16] MEDS ORDERED: Trimethoprim/Sulfamethoxazole DS Tab PO SCH (09:00)
[2023-06-16] MEDS ORDERED: Lisinopril 10 MG Tab PO SCH (09:00)
[2023-06-16] MEDS ORDERED: Pravastatin Sodium 20 MG Tab PO SCH (09:00)
[2023-06-16] MEDS ORDERED: HYDMOR2 PO (09:39)
[2023-06-16] MEDS ORDERED: SULTRIDS PO (09:40)
[2023-06-16] MEDS ORDERED: XARELTO20 MG PO (09:43)
--- NOTE | 2023-06-16 12:07 | NUR ---
DISCHARGE SUMMARY POD1 L TKA, AQUACEL DRESSING CDI, TEDS ON. A&OX4, VSS/RA, ISIDRO PO, VOIDING, AMB FWW/GB, PAIN MANAGED, IV DC'D. DC INS PROVIDED. PT REP UNDERSTANDING THOSE INSTRUCTIONS. LEFT FLOOR VIA WC WITH DRIVER EXAMINER TO GO HOME WITH FRIEND WITH ALL PERSONAL POSSESSIONS INCLUDING DC PACKET, POLAR MARQUITA, AQUACEL DRESSINGS; REPORTS SCRIPTS FILLED AT HOME.
[2023-06-16] MEDS ORDERED: Rivaroxaban 10 MG Tab PO SCH (17:00)
[2023-06-22] MEDS ORDERED: OZEMPIC 2 MG/3 ML SC SCH (09:00)
== END 2023-06-16 11:43 | disposition home or self-care (01) ==
LOC: ORSCMMR 10:50 → SURS 10:50 → ORSCMMR 10:51 → ORD 14:00 → SURS 16:35 → ORSCMMR 06-16 11:43
PROVIDERS: Orthopaedic Surgery
PROC: 0SRD0J9 Replacement of Left Knee Joint with Synthetic Substitute, Cemented, Open Approach (ICD-10-PCS; principal; 2023-06-15 14:00)
DX: M17.0 Bilateral primary osteoarthritis of knee (principal); Z86.718 Personal history of other venous thrombosis and embolism; B19.20 Unspecified viral hepatitis C without hepatic coma; I10 Essential (primary) hypertension; Z87.891 Personal history of nicotine dependence; E78.00 Pure hypercholesterolemia, unspecified; Z79.899 Other long term (current) drug therapy; E66.9 Obesity, unspecified; Z68.36 Body mass index [BMI] 36.0-36.9, adult
CPT/HCPCS: 36415; 73560-LT; 80048; 82947; 83735; 85025; 94760; 97110; 97116; 97162; 97530; A9270; C1713; C1776; J0171; J0690; J0735; J1100; J1170; J1885; J2250; J2405; J2704; J2795; J3010; J3370; J7120

== ENCOUNTER 2024-05-29 19:07 | Inpatient (IN) | payer OTHER ==
[~2024-05-29] VITALS: Ht 177.8 cm; Wt 137.4 kg
[~2024-05-29 19:07] MED LIST changes: -CeFAZolin Sodium 2,000 MG in NS 50 ML IV SCH; -Chlorhexidine Mouth Care 15 ML UDC MT SCH; +DOCU100 PO; +HYDMOR2 PO; -Lactated Ringer's 1,000 ML IV SCH; +ONDA4ODT MM; +OXYC10ER PO; +XARELTO20 MG PO
[2024-05-29] MEDS ORDERED: Ondansetron HCl 2 MG / ML 2ML Vial IV ONE (19:55)
[2024-05-29 20:34] LABS: BASOPHILS ABSOLUTE AUTO 0.05 K/mm3 (0.00-0.23); BASOPHILS PERCENT AUTO 1 % (0-2); EOSINOPHILS ABSOLUTE AUTO 0.24 K/mm3 (0.00-0.68); EOSINOPHILS PERCENT AUTO 2 % (0-6); Hematocrit 44.5 % (33.0-51.0); Hemoglobin 15.1 g/dL (11.5-16.0); IMMATURE GRAN ABSOLUTE AUTO 0.04 K/mm3 (0.00-0.10); IMMATURE GRAN PERCENT AUTO 0 % (0-1); LYMPHOCYTES ABSOLUTE AUTO 2.06 K/mm3 (0.84-5.20); LYMPHOCYTES PERCENT AUTO 19 % (21-46); MONOCYTES ABSOLUTE AUTO 0.79 K/mm3 (0.16-1.47); MONOCYTES PERCENT AUTO 7 % (4-13); Mean Corpuscular HGB 30.4 pg (26.0-34.0); Mean Corpuscular HGB Conc 33.9 g/dL (31.5-36.5); Mean Corpuscular Volume 90 fL (80-100); NEUTROPHILS ABSOLUTE AUTO 7.67 K/mm3 (1.96-9.15); NEUTROPHILS PERCENT AUTO 71 % (41-73); Platelet Count 159 K/mm3 (150-400); RDW Coefficient Variation 14.8 % (11.7-14.2); RDW Standard Deviation 48.7 fL (35.1-46.3); Red Blood Cell Count 4.97 M/mm3 (3.80-5.20); White Blood Cell Count 10.85 K/mm3 (4.00-11.30)
[2024-05-29 20:52] LABS: Albumin, Blood 3.8 g/dL (3.4-5.0); Albumin/Globulin Ratio 0.8 (0.8-1.8); Bilirubin, Total 0.4 mg/dL (0.1-1.0); Bun/Creatinine Ratio 15.6 (12.0-20.0); Calcium, Blood 9.7 mg/dL (8.5-10.1); Creatinine, Blood 0.9 mg/dL (0.40-1.00); Globulin, Blood 4.5 g/dL (2.2-4.0); Potassium, Blood 4.7 mmol/L (3.5-5.5); Total Protein, Blood 8.3 g/dL (6.4-8.2)
[2024-05-29] MEDS ORDERED: Naloxone HCl 0.4MG / ML 1ML Vial IV PRN (22:40)
[2024-05-29] MEDS ORDERED: Ondansetron HCl 2 MG / ML 2ML Vial IV PRN (22:40)
[2024-05-29] MEDS ORDERED: FLU VACC TS2024-25(6MOS UP)/PF 45 MCG/0.5 ML SYRINGE IM SCH (22:45)
[2024-05-29] MEDS ORDERED: Acetaminophen 325 MG TABLET PO PRN (22:45)
[2024-05-29] MEDS ORDERED: HydrALAZINE HCl 20 MG / ML 1ML Vial IV PRN (22:45)
[2024-05-29] MEDS ORDERED: FentaNYL Citrate 50 MCG/ML 2 ML Injection IV PRN (22:45)
[2024-05-29] MEDS ORDERED: Lactated Ringer's 1,000 ML IV SCH (23:00)
--- NOTE | 2024-05-29 23:50 | NUR ---
ARRIVAL TO UNIT PT ARRIVED TO UNIT FROM ED VIA GOURNEY. PT ABLE TO IND TRANSFER TO BED. A&0 x4. PT STATES "I'M STARTING TO HAVE SOME MEMORY PROBLEMS," ABLE TO ANSWER ALL QUESTIONS APPROPRIATELY AND COMMUNICATES NEEDS EFFECTIVELY. NG TUBE IN PLACE c YELLOW OUTPUT IN CANNISTER. NG TUBE PLACED TO LIS. PT AGREEABLE c NPO STATUS. PT REPORTS 9/10 PAIN TO NASAL PASSAGE, THROAT, ABD, BACK AND BILAT KNEES. PT ORIENTED TO UNIT, CALL LIGHT IN REACH.
[2024-05-29 23:54] VITALS: BP 143/99
[2024-05-30] MEDS ORDERED: Inderal60 MG PO (00:04)
[2024-05-30] MEDS ORDERED: Percocet 10-321 EACH PO (00:08)
[2024-05-30] MEDS ORDERED: Phenol/Sodium Phenolate Oral Spray 180 ML MM PRN (00:15)
[2024-05-30] MEDS ORDERED: HYDROmorphone HCl/Pf 1MG SYR IV PRN (00:55)
[2024-05-30 04:17] VITALS: BP 128/80
--- NOTE | 2024-05-30 04:39 | NUR ---
SHIFT SUMMARY S/P SBO. NO ACUTE CHANGES OVERNIGHT. VSS, CONT BIOX IN USE. NPO. NG TUBE TO LIS c YELLOW OUTPUT. PT REPORTS ABD & NASAL/THROAT PAIN. MEDICATED PER EMAR & K-PAD IN USE. IV FLUIDS INFUSING PER EMAR. PT ABLE TO AMB TO BSC c SBA R/T CORD MANAGEMENT, BASELINE IND. VOIDING. NO BM/FLATUS OVERNIGHT. CALL LIGHT IN REACH, BED IN LOWEST POSITION, WILL REPORT TO DAY RN.
[2024-05-30] MEDS ORDERED: OxyCODONE 10/Acetamin 325 TABLET PO PRN (06:05)
[2024-05-30 06:53] LABS: BASOPHILS ABSOLUTE AUTO 0.06 K/mm3 (0.00-0.23); BASOPHILS PERCENT AUTO 1 % (0-2); EOSINOPHILS ABSOLUTE AUTO 0.23 K/mm3 (0.00-0.68); EOSINOPHILS PERCENT AUTO 3 % (0-6); Hematocrit 44.6 % (33.0-51.0); Hemoglobin 14.9 g/dL (11.5-16.0); IMMATURE GRAN ABSOLUTE AUTO 0.03 K/mm3 (0.00-0.10); IMMATURE GRAN PERCENT AUTO 0 % (0-1); LYMPHOCYTES ABSOLUTE AUTO 2.32 K/mm3 (0.84-5.20); LYMPHOCYTES PERCENT AUTO 27 % (21-46); MONOCYTES ABSOLUTE AUTO 0.78 K/mm3 (0.16-1.47); MONOCYTES PERCENT AUTO 9 % (4-13); Mean Corpuscular HGB 30.8 pg (26.0-34.0); Mean Corpuscular HGB Conc 33.4 g/dL (31.5-36.5); Mean Corpuscular Volume 92 fL (80-100); Mean Platelet Volume 10.8 fL (9.1-12.4); NEUTROPHILS ABSOLUTE AUTO 5.33 K/mm3 (1.96-9.15); NEUTROPHILS PERCENT AUTO 61 % (41-73); Platelet Count 195 K/mm3 (150-400); RDW Coefficient Variation 14.9 % (11.7-14.2); RDW Standard Deviation 50.9 fL (35.1-46.3); Red Blood Cell Count 4.84 M/mm3 (3.80-5.20); White Blood Cell Count 8.75 K/mm3 (4.00-11.30)
[2024-05-30 07:08] LABS: Albumin, Blood 3.6 g/dL (3.4-5.0); Albumin/Globulin Ratio 0.8 (0.8-1.8); Bilirubin, Total 0.5 mg/dL (0.1-1.0); Bun/Creatinine Ratio 19.8 (12.0-20.0); Calcium, Blood 9.5 mg/dL (8.5-10.1); Creatinine, Blood 0.76 mg/dL (0.40-1.00); Globulin, Blood 4.4 g/dL (2.2-4.0); Magnesium, Blood 2.6 mg/dL (1.6-2.4); Potassium, Blood 4.2 mmol/L (3.5-5.5)
[2024-05-30 07:16] VITALS: BP 124/80
[2024-05-30] MEDS ORDERED: Docusate Sodium 100 MG Cap PO SCH (09:00)
[2024-05-30] MEDS ORDERED: Pravastatin Sodium 20 MG Tab PO SCH (09:00)
[2024-05-30] MEDS ORDERED: Propranolol HCL 20 MG TAB PO SCH (09:00)
[2024-05-30] MEDS ORDERED: Lisinopril 10 MG Tab PO SCH (09:00)
--- NOTE | 2024-05-30 11:27 | NUR ---
Pt. is awake in bed and welcomes my visit. Pt. displays evidence of great discomfort regarding her tube. Listen with empathy and a calming presence. Pt. verbalizes that her son is a supportive family member and that she has been involved in a yeyo community in the past, but that work and health has kept her away. Pastoral support and encouragement are given. Prayed for Pt. Pt. verbalized gratitude for th spiritual care visit and welcomed this oracle etl developer to return.
[2024-05-30] MEDS ORDERED: LORazepam 2 MG/ML 1ML Injection IV PRN (12:30)
[2024-05-30] MEDS ORDERED: PROP60 PO (13:20)
[2024-05-30 14:49] VITALS: BP 140/89
--- NOTE | 2024-05-30 16:12 | NUR ---
SMALL BOWEL FOLLOW THROUGH COMPLETED. PT HAS HAD X2 BM'S. NGT REMOVED AT ABOUT 1530 PER ORDER
[2024-05-31] MEDS ORDERED: Propranolol HCL 60 MG CAPCR PO SCH (09:00)
== END 2024-05-30 18:31 | disposition home or self-care (01) | DRG 389 ==
LOC: ER 19:07 → SURS 19:08 → ERHOLD 19:08 → SURS 23:17
PROVIDERS: Physician Assistant; ADMIT Student in an Organized Health Care Education/Training Program
PROC: 0D9670Z Drainage of Stomach with Drainage Device, Via Natural or Artificial Opening (ICD-10-PCS; principal; 2024-05-29)
DX: K56.609 Unspecified intestinal obstruction, unspecified as to partial versus complete obstruction (principal); D68.51 Activated protein C resistance; F02.84 Dementia in other diseases classified elsewhere, unspecified severity, with anxiety; Z68.41 Body mass index [BMI] 40.0-44.9, adult; E11.9 Type 2 diabetes mellitus without complications; F17.210 Nicotine dependence, cigarettes, uncomplicated; E78.5 Hyperlipidemia, unspecified; G30.0 Alzheimer's disease with early onset; I10 Essential (primary) hypertension; E66.01 Morbid (severe) obesity due to excess calories; G89.29 Other chronic pain; Z79.84 Long term (current) use of oral hypoglycemic drugs; Z88.1 Allergy status to other antibiotic agents; Z88.5 Allergy status to narcotic agent; Z88.8 Allergy status to other drugs, medicaments and biological substances; Z79.01 Long term (current) use of anticoagulants; Z86.718 Personal history of other venous thrombosis and embolism; Z86.14 Personal history of Methicillin resistant Staphylococcus aureus infection; Z79.891 Long term (current) use of opiate analgesic; Z86.19 Personal history of other infectious and parasitic diseases
CPT/HCPCS: 36415; 71045; 74177; 74250; 80053; 83605; 83690; 83735; 85025; 96374; 99285-25; A9270; G0378; J1171; J2060; J2405; J3010; J7120; Q9967

== ENCOUNTER 2025-03-16 19:45 | Emergency (ER) | payer OTHER ==
[~2025-03-16] VITALS: Ht 180.3 cm; Wt 145.2 kg
[~2025-03-16 19:45] MED LIST changes: +Inderal60 MG PO; +PROP60 PO; +Percocet 10-321 EACH PO
[2025-03-16 20:27] VITALS: BP 123/84
[2025-03-16 20:51] LABS: BASOPHILS ABSOLUTE AUTO 0.05 K/mm3 (0.00-0.23); BASOPHILS PERCENT AUTO 1 % (0-2); EOSINOPHILS ABSOLUTE AUTO 0.20 K/mm3 (0.00-0.68); EOSINOPHILS PERCENT AUTO 2 % (0-6); Hematocrit 40.5 % (33.0-51.0); Hemoglobin 13.4 g/dL (11.5-16.0); IMMATURE GRAN ABSOLUTE AUTO 0.02 K/mm3 (0.00-0.10); IMMATURE GRAN PERCENT AUTO 0 % (0-1); LYMPHOCYTES ABSOLUTE AUTO 2.11 K/mm3 (0.84-5.20); LYMPHOCYTES PERCENT AUTO 21 % (21-46); MONOCYTES ABSOLUTE AUTO 0.66 K/mm3 (0.16-1.47); MONOCYTES PERCENT AUTO 7 % (4-13); Mean Corpuscular HGB Conc 33.1 g/dL (31.5-36.5); Mean Corpuscular Volume 90 fL (80-100); NEUTROPHILS ABSOLUTE AUTO 6.84 K/mm3 (1.96-9.15); NEUTROPHILS PERCENT AUTO 69 % (41-73); NRBC ABSOLUTE 0.00 K/mm3 (0.00-0.02); NRBC Auto 0.0 /100 WBC (0.0-0.2); Platelet Count 160 K/mm3 (150-400); RDW Coefficient Variation 14.0 % (11.7-14.2); RDW Standard Deviation 46.7 fL (35.1-46.3)
[2025-03-16 21:09] LABS: Alanine Aminotransfer (ALT/SGP 16.0 U/L (12-78); Albumin, Blood 3.7 g/dL (3.4-5.0); Albumin/Globulin Ratio 1.0 (0.8-1.8); Anion Gap 10.0 mmol/L (3-11); Aspartate Aminotrans (AST/SGOT 13.0 U/L (12-37); Bilirubin, Total 0.3 mg/dL (0.1-1.0); Blood Urea Nitrogen 20.0 mg/dL (8-24); CO2, Blood 25.0 mmol/L (21-32); Calcium, Blood 8.7 mg/dL (8.5-10.1); Chloride, Blood 105.0 mmol/L (98-108); Creatinine, Blood 0.76 mg/dL (0.40-1.00); Globulin, Blood 3.7 g/dL (2.2-4.0); Glucose, Blood 130.0 mg/dL (70-99); Potassium, Blood 4.0 mmol/L (3.5-5.5); Sodium, Blood 136.0 mmol/L (136-145); Total Protein, Blood 7.4 g/dL (6.4-8.2)
[2025-03-16] MEDS ORDERED: MECL25 PO (22:37)
== END 2025-03-16 23:22 | disposition home or self-care (01) ==
LOC: ER 19:45
PROVIDERS: Student in an Organized Health Care Education/Training Program
DX: H81.11 Benign paroxysmal vertigo, right ear (principal); D68.51 Activated protein C resistance; I10 Essential (primary) hypertension; E11.9 Type 2 diabetes mellitus without complications; Z88.1 Allergy status to other antibiotic agents; Z88.5 Allergy status to narcotic agent; Z88.8 Allergy status to other drugs, medicaments and biological substances; Z79.899 Other long term (current) drug therapy; Z59.89 Other problems related to housing and economic circumstances
CPT/HCPCS: 70450; 80053; 85025; 93005; 93010; 99285-25; A9270